=== PATIENT | female | born 1995 | race African-American/Black ===

== ENCOUNTER 2018-04-16 09:43 | Emergency (ER) | payer MEDICAID, SELFPAY ==
[2018-04-16 09:52] VITALS: BP 105/90; PULSE 63; RESP 18; TEMP 36.5; O2SAT 100
[2018-04-16 10:11] LABS: Bilirubin Negative (Negative); Blood Large (Negative); Clarity Clear; Glucose Negative (Negative); Ketones Negative (Negative); Leukocyte Esterase Negative (Negative); Nitrite Negative (Negative); Specific Gravity >= 1.030 (1.005-1.025); Urobilinogen 0.2 EU/dL (Up TO 0.2); pH 5.5 (5-8)
[2018-04-16 10:22] LABS: Bacteria Moderate HPF (Negative); C & S Indicated? No; Casts Negative LPF (Negative); Crystals Negative HPF (Negative); Epithelial Cells Few HPF (Negative); Mucus Negative (Negative); Other Cells Negative (Negative); RBC >50 (0-2); WBC Negative HPF (0-5)
--- NOTE | 2018-04-16 10:36 | W.ED.GENAD ---
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 Tylenol and/or Ibuprofen as needed for discomfort. You can take Ibuprofen again at 6:30 tonight. You make take 600mg of Ibuprofen and 1,000mg of Tylenol every six hours as needed for discomfort. Please follow up with OB-SPORTS COORDINATOR, number is listed below. Please call to schedule appointment. If you develop fevers/chills, change in urinary or bowel habits, increased pain or other new/worsening symptoms please seek care urgently once again. Sorry about our computure problems today. Your prescriptions have been called into the [facility] pharmacy in [place]. Referrals: Isabel Rossi [ [facility] STAFF PHYSICIAN] - 2 weeks (To discuss dysmenorrhea and control options. ) Medical Decision Making MDM Narrative Medical decision making narrative: Patient presents today with chief complaint of dysmenorrhea. Reports this has been a problem for years but that typically is well managed with OCP. However, secondary to her schedule she has not been able to get to [facility] and refill her prescription. She is not sexually active. UPT negative here today. Patient reports that this is the time she is due for her menses. Has not taken any OTC medication for her discomfort. Patient reports pain is typical for her. Indicates low, central abdomen as area of discomfort, that was reproducible on exam. Reviewed record, patient has been here previously for this. Had responded well to Toradol. Will given IM Toradol. Patient appears comfortable, resting in bed on her cell phone. No acute distress, patient is afebrile, vital signs are WNL. As pain is central, it occurs monthly with onset of menses and patient appears well on exam, I do not feel that imaging or labs are necessary at this time. Patient received Toradol IM. She reports that her pain is down from an 8 to a 4 after medication. Will refill her OCP. She prefers to f/u here with [facility], referral has been sent. Patient will call the department to schedule appointment. Encouraged hydration. Advised Tylenol and/or Motrin as needed for discomfort. Discussed new/worsening symptoms and when to seek care urgently once again. All of her questions and concerns were addressed, she is in agreement with this plan. Lab Data Lab Results 04/16/18 Range/Units 09:50 Urine Color Yellow (Yellow) Urine Clarity Clear Urine pH 5.5 (5-8) Ur Specific [place] >= 1.030 H (1.005-1.025) Urine Protein 30 H (Negative) mg/dL Urine Ketones Negative (Negative) mg/dL Urine Blood Large H (Negative) Urine Nitrite Negative (Negative) Urine Bilirubin Negative (Negative) Urine Urobilinogen 0.2 (Up TO 0.2) EU/dL Ur Leukocyte Esterase Negative (Negative) Urine RBC >50 H (0-2) Urine WBC Negative (0-5) HPF Ur Epithelial Cells Few (Negative) HPF Urine Crystals Negative (Negative) HPF Urine Bacteria Moderate (Negative) HPF Urine Casts Negative (Negative) LPF Urine Mucus Negative (Negative) Urine Other Negative (Negative) Ur Culture Indicated? No Urine Glucose Negative (Negative) mg/dL HPI - General Adult General Mode of arrival: ambulatory. Date/Time Provider Initiated Documentation: 04/16/18 10:26. Limitations to Documentation: no limitations. Information obtained by: patient. History of Present Illness described as moderate, Quality is described as aching, and is localized to the abdomen (low central abdomen). Patient reports radiation to back (low back). Patient started experiencing this hour(s) (at 0400 ) and it has been constant. No relieving factors improve symptom(s), (patient has not tried anything for her discomfort) No exacerbating factors reported . Patient notes no other symptoms.; denies chest pain, fever/chills, headaches, loss of appetite, nausea/vomiting, rash and shortness of breath. Patient did receive the following treatments prior to arrival, none HPI Narrative: Patient presents with chief complaint of menstrual cramps that began this morning. Related Data Previous Rx's Medication Instructions Recorded ibuprofen 600 mg PO TID #30 tablet 05/12/14 Allergies Allergy/AdvReac Type Severity Reaction Status Date / Time venom-honey bee Allergy Severe Anaphylaxsi Unverified 04/16/18 10:30 [bee venom (honey bee)] s General Stated Complaint: CAT AND DOG BATHER DUANE: 3 Review of Systems Constitutional Reports as per HPI, Denies body ache(s), Denies chills and Denies fever(s) Cardiovascular Denies chest pain Respiratory Denies cough Gastrointestinal Reports as per HPI, Reports abdominal pain, Denies change in bowel habits, Reports cramping, Denies nausea and Denies vomiting Genitourinary Reports system reviewed and no additional complaints, except as docu, Denies abnormal menses (Patient began her usual menstraul cycle this morning. Patient is typically on OCP but states she has not been able to get more [facility] this [facility]. States typical amount of bleeding. ), Denies urinary frequency, Denies difficulty voiding and Denies dyspareunia Musculoskeletal Reports as per HPI PFSH Family History Mother Migraine Personal history of malignant neoplasm Asthma Brother Asthma Other Diabetes Essential hypertension Heart disease Cerebrovascular accident Medical History Headache Social History Smoking/Tobacco Use Status: Never Female Reproductive History Menstrual control method: none Exam Const General: cooperative, healthy appearing, comfortable, no acute distress, well developed and well groomed Nutritional Appearance: average body habitus and well nourished Orientation: alert and awake Eyes General: appearance normal, both eyes and all related structures Resp Effort & Inspection: normal respiratory effort, able to speak in complete sentences and no respiratory distress Auscultation: clear to auscultation bilaterally and lung sounds not diminished Cardio Rate: regular rate Rhythm: regular rhythm Heart Sounds: S1 normal and S2 normal GI Inspection: normal to inspection, no abdominal wall ecchymosis, no edema, non-distended, no incisions and obesity Palpation: soft, no hepatosplenomegaly, not firm, no guarding and no hepatomegaly Auscultation: normal bowel sounds Back/Spine/Pelvis Back: no CVA tenderness Thoracic/Lumbar Spine: thoracic and lumbar spine normal to inspection (Patient indicated across lower back as area of discomfort but none was elicited with palpation) Skin General skin exam: no rashes or lesions noted Neuro General: alert, awake and gait normal Psych Appearance: grossly normal and well kempt Mental Status: mental status grossly normal Speech and Movement: speech and movement normal Mood: congruent mood Affect: normal affect Attitude: cooperative Thought Process: normal Course Vital Signs Temperature 36.5 C 04/16/18 09:52 Pulse 63 04/16/18 09:52 Respiratory Rate 18 04/16/18 09:52 Blood Pressure 105/90 04/16/18 09:52 Pulse Oximetry 100 04/16/18 09:52 Temperature 36.5 C 04/16/18 09:52 Pulse 63 04/16/18 09:52 Respiratory Rate 18 04/16/18 09:52 Blood Pressure 105/90 04/16/18 09:52 Pulse Oximetry 100 04/16/18 09:52 Lab/Test Results Lab/Test Results: Laboratory Tests 04/16/18 09:50 Urine Color Yellow Urine Clarity Clear Urine pH 5.5 Ur Specific [place] >= 1.030 H Urine Protein 30 H Urine Ketones Negative Urine Blood Large H Urine Nitrite Negative Urine Bilirubin Negative Urine Urobilinogen 0.2 Ur Leukocyte Esterase Negative Urine RBC >50 H Urine WBC Negative Ur Epithelial Cells Few Urine Crystals Negative Urine Bacteria Moderate Urine Casts Negative Urine Mucus Negative Urine Other Negative Ur Culture Indicated? No Urine Glucose Negative
[2018-04-16] MEDS: Ketorolac 60 MG/2 ML VIAL IM (10:40)
--- NOTE | 2018-04-16 10:42 | ED.GENADUL_ITS ---
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 Tylenol and/or Ibuprofen as needed for discomfort. You can take Ibuprofen again at 6:30 tonight. You make take 600mg of Ibuprofen and 1,000mg of Tylenol every six hours as needed for discomfort. Please follow up with OB-CLINICAL DIRECTOR, number is listed below. Please call to schedule appointment. If you develop fevers/chills, change in urinary or bowel habits, increased pain or other new/worsening symptoms please seek care urgently once again. Sorry about our computure problems today. Your prescriptions have been called into the [facility] pharmacy in [place]. Referrals: Isabel Rossi [ [facility] STAFF PHYSICIAN] - 2 weeks (To discuss dysmenorrhea and control options. ) Medical Decision Making MDM Narrative Medical decision making narrative: Patient presents today with chief complaint of dysmenorrhea. Reports this has been a problem for years but that typically is well managed with OCP. However, secondary to her schedule she has not been able to get to [facility] and [facility]ill her prescription. She is not sexually active. UPT negative here today. Patient reports that this is the time she is due for her menses. Has not taken any OTC medication for her discomfort. Patient reports pain is typical for her. Indicates low, central abdomen as area of discomfort, that was reproducible on exam. Reviewed record, patient has been here previously for this. Had responded well to Toradol. Will given IM Toradol. Patient appears comfortable, resting in bed on her cell phone. No acute distress, patient is afebrile, vital signs are WNL. As pain is central, it occurs monthly with onset of menses and patient appears well on exam, I do not feel that imaging or labs are necessary at this time. Patient received Toradol IM. She reports that her pain is down from an 8 to a 4 after medication. Will refill her OCP. She prefers to f/u here with TE[facility], referral has been sent. Patient will call the department to schedule appointment. Encouraged hydration. Advised Tylenol and/or Motrin as needed for discomfort. Discussed new/worsening symptoms and when to seek care urgently once again. All of her questions and concerns were addressed, she is in agreement with this plan. Lab Data Lab Results 04/16/18 Range/Units 09:50 Urine Color Yellow (Yellow) Urine Clarity Clear Urine pH 5.5 (5-8) Ur Specific [place] >= 1.030 H (1.005-1.025) Urine Protein 30 H (Negative) mg/dL Urine Ketones Negative (Negative) mg/dL Urine Blood Large H (Negative) Urine Nitrite Negative (Negative) Urine Bilirubin Negative (Negative) Urine Urobilinogen 0.2 (Up TO 0.2) EU/dL Ur Leukocyte Esterase Negative (Negative) Urine RBC >50 H (0-2) Urine WBC Negative (0-5) HPF Ur Epithelial Cells Few (Negative) HPF Urine Crystals Negative (Negative) HPF Urine Bacteria Moderate (Negative) HPF Urine Casts Negative (Negative) LPF Urine Mucus Negative (Negative) Urine Other Negative (Negative) Ur Culture Indicated? No Urine Glucose Negative (Negative) mg/dL HPI - General Adult General Mode of arrival: ambulatory . Date/Time Provider Initiated Documentation: 04/16/18 10:26 . Limitations to Documentation: no limitations . Information obtained by: patient . History of Present Illness described as moderate, Quality is described as aching, and is localized to the abdomen (low central abdomen). Patient reports radiation to back (low back ). Patient started experiencing this hour(s) (at 0400 ) and it has been constant. No relieving factors improve symptom(s), (patient has not tried anything for her discomfort) No exacerbating factors reported . Patient notes no other symptoms.; denies chest pain, fever/chills, headaches, loss of appetite, nausea/vomiting, rash and shortness of breath. Patient did receive the following treatments prior to arrival, none HPI Narrative: Patient presents with chief complaint of menstrual cramps that began this morning. 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 Patient is typically on OCP but states she has not been able to get more from [facility] this [facility]. States typical amount of bleeding. ), Denies urinary frequency, Denies difficulty voiding and Denies dyspareunia Musculoskeletal Reports as per HPI PFSH Family History Mother Migraine Personal history of malignant neoplasm Asthma Brother Asthma Other Diabetes Essential hypertension Heart disease Cerebrovascular accident Medical History Headache Social History Smoking/Tobacco Use Status: Never Female Reproductive History Menstrual control method: none Exam Const General: cooperative, healthy appearing, comfortable, no acute distress, well developed and well groomed Nutritional Appearance: average body habitus and well nourished Orientation: alert and awake Eyes General: appearance normal, both eyes and all related structures Resp Effort & Inspection: normal respiratory effort, able to speak in complete sentences and no respiratory distress Auscultation: clear to auscultation bilaterally and lung sounds not diminished Cardio Rate: regular rate Rhythm: regular rhythm Heart Sounds: S1 normal and S2 normal GI Inspection: normal to inspection, no abdominal wall ecchymosis, no edema, non- distended, no incisions and obesity Palpation: soft, no hepatosplenomegaly, not firm, no guarding and no hepatomegaly Auscultation: normal bowel sounds Back/Spine/Pelvis Back: no CVA tenderness Thoracic/Lumbar Spine: thoracic and lumbar spine normal to inspection (Patient indicated across lower back as area of discomfort but none was elicited with palpation) Skin General skin exam: no rashes or lesions noted Neuro General: alert, awake and gait normal Psych Appearance: grossly normal and well kempt Mental Status: mental status grossly normal Speech and Movement: speech and movement normal Mood: congruent mood Affect: normal affect Attitude: cooperative Thought Process: normal Course Vital Signs Temperature 36.5 C 04/16/18 09:52 Pulse 63 04/16/18 09:52 Respiratory Rate 18 04/16/18 09:52 Blood Pressure 105/90 04/16/18 09:52 Pulse Oximetry 100 04/16/18 09:52 Temperature 36.5 C 04/16/18 09:52 Pulse 63 04/16/18 09:52 Respiratory Rate 18 04/16/18 09:52 Blood Pressure 105/90 04/16/18 09:52 Pulse Oximetry 100 04/16/18 09:52 Lab/Test Results Lab/Test Results: Laboratory Tests 04/16/18 09:50 Urine Color Yellow Urine Clarity Clear Urine pH 5.5 Ur Specific [place] >= 1.030 H Urine Protein 30 H Urine Ketones Negative Urine Blood Large H Urine Nitrite Negative Urine Bilirubin Negative Urine Urobilinogen 0.2 Ur Leukocyte Esterase Negative Urine RBC >50 H Urine WBC Negative Ur Epithelial Cells Few Urine Crystals Negative Urine Bacteria Moderate Urine Casts Negative Urine Mucus Negative Urine Other Negative Ur Culture Indicated? No Urine Glucose Negative
[2018-04-16 11:30] VITALS: BP 132/76; PULSE 68; RESP 16; TEMP 36.5; O2SAT 98
== END 2018-04-16 11:30 | disposition home or self-care (01) ==
PROVIDERS: Emergency Medicine; Emergency Provider Physician Assistant; PCP Registered Nurse
DX: N94.6 Dysmenorrhea, unspecified (principal)
CPT/HCPCS: 81025; 96372; 99284; 81003; 81015; J1885

== ENCOUNTER 2018-05-13 18:25 | Outpatient (REF) | payer MEDICAID, SELFPAY ==
[2018-05-15 14:54] LABS: Chlamydia Result Negative; GC Result Negative; Specimen Description URINE
== END 2018-05-13 18:45 ==
LOC: NCHCN 18:25
PROVIDERS: PCP Nurse Practitioner Family; Visit Provider Nurse Practitioner Family
DX: Z11.3 Encounter for screening for infections with a predominantly sexual mode of transmission (principal)
CPT/HCPCS: 87491; 87591

== ENCOUNTER 2018-05-20 00:23 | Outpatient (CLI) | payer MEDICAID, SELFPAY ==
--- NOTE | 2018-05-20 11:16 | DI.US_ITS ---
SYMPTOM/DIAGNOSIS: LEG MASS, R22.40, LUMP RT MEDIAL ANKLE, SOFT TISSUE ULTRASOUND OF MEDIAL LOWER LEG: Targeted sonographic evaluation of the right lower leg medially was performed. No cystic or solid masses are seen sonographically. IMPRESSION: Negative ultrasound of the right lower leg. No sonographic correlation to the palpable abnormality is identified.
== END 2018-05-20 00:43 ==
PROVIDERS: PCP Nurse Practitioner Family; Visit Provider Nurse Practitioner Family
DX: R22.41 Localized swelling, mass and lump, right lower limb (principal)
CPT/HCPCS: 76881

== ENCOUNTER 2018-11-13 02:13 | Emergency (ER) | payer MEDICAID, SELFPAY ==
[2018-11-13 02:22] VITALS: BP 123/65; PULSE 115; RESP 16; TEMP 36.6; O2SAT 100
--- NOTE | 2018-11-13 02:26 | ED.GENADUL_ITS ---
Discharge Plan Disposition Patient Disposition: HOME Condition: Improving Discharge Details Chief Complaint: Sorethroat Clinical Impression: Acute pharyngitis Primary Care Provider: Samira Mast ED Provider: Tez Reyes Home Meds and New Rx's Prescriptions: Continued norgestimate-ethinyl estradiol [Ortho-Cyclen (28)] 1 EACH tablet 1 tab-cap PO DAILY Qty: 3 RF: 3 epinephrine [EpiPen 2-Yasmani] 0.3 MG/0.3 ML auto-injector 0.3 mg IM ONCE Qty: 1 RF: 0 ibuprofen 600 MG tablet 600 mg PO TID Qty: 30 RF: 0 Discharge Instructions Instructions: Pharyngitis (ED) Additional Instructions: The dexamethasone will continue to work over approximately 36 hours and improve your discomfort. Tylenol and ibuprofen as needed for pain. May continue salt water gargles. May use [id number] Cepacol lozenges. Return for worsening or any acute concerns. Medical Decision Making 23-year-old female with sore throat over a day and a half time. She has erythematous tonsillar pillar but no severe exudates and no asymmetrical swelling. Rapid strep test is negative. Patient will be given a single dose of dexamethasone for its anti-inflammatory properties, she is given Tylenol. She is stable for outpatient management of pharyngitis. HPI General Mode of arrival: ambulatory . Date/Time Provider Initiated Documentation: 11/13/18 02:20 . Limitations to Documentation: no limitations . Information obtained by: patient . History of Present Illness 23 year old F presents to the emergency department with the chief complaint of Sore throat times 1.5 days., described as moderate, Quality is described as dull and constant, and is localized to the mouth. Patient reports no radiation. Patient started experiencing this day(s) and it has been constant. No relieving factors improve symptom(s), No exacerbating factors reported . Fercho baez notes no other symptoms. and other. Related Data Home Medications Medication Instructions Recorded Confirmed norgestimate-ethinyl estradiol 1 tab-cap PO DAILY #3 pack 12/22/13 [Ortho-Cyclen (28)] epinephrine [EpiPen 2-Yasmani] 0.3 mg IM ONCE #1 pack 04/24/14 ibuprofen 600 mg PO TID #30 tablet 05/12/14 Previous Rx's Medication Instructions Recorded ibuprofen 600 mg PO TID #30 tablet 05/12/14 Allergies Allergy/AdvReac Type Severity Reaction Status Date / Time venom-honey bee Allergy Severe Anaphylaxsi Unverified 11/13/18 02:22 [bee venom (honey bee)] s General Stated Complaint: Sorethroat DUANE: 4 Review of Systems Review of Systems No muffled voice, tolerating secretions. 6 systems reviewed and otherwise negative [facility] Medical History Headache Family History Mother Migraine Personal history of malignant neoplasm Asthma Brother Asthma Other Diabetes Essential hypertension Heart disease Stroke Social History Smoking/Tobacco Use Status: Never Drug use: Never Do you feel safe at home: Yes Do you feel safe in your relationship?: Yes Female Reproductive History Menstrual control method: none Exam Narrative Exam Narrative: GEN: awake, alert, oriented 3. Pleasant, well groomed, interactive. HEAD: Normocephalic, atraumatic ENT: Mucous membranes moist, oropharynx w erythematous tonsillar pillars, no uvular shift external ear exam unremarkable EYES: PERRL, EOMI NECK: Full ROM, no VIMAL, no menigismus CHEST/RESP: Nontender, clear to auscultation bilateral, no wheeze/rhonchi/rales CARDIOVASCULAR: RRR, no murmur, rub rocio. 2+ Rad pulse bilateral ABDOMEN: Soft, nontender, no mass. +Bowel sounds EXT: Full ROM, no edema, no rash Neuro: Grossly normal neurologic exam, conversant, interactive. Psych: Speech fluent, thoughts congruent, affect normal Course Vital Signs Temperature 36.6 C 11/13/18 02:22 Pulse 115 H 11/13/18 02:22 Respiratory Rate 16 11/13/18 02:22 Blood Pressure 123/65 11/13/18 02:22 Pulse Oximetry 100 11/13/18 02:22 Temperature 36.6 C 11/13/18 02:22 Temperature Source Temporal Artery Scan 11/13/18 02:22 Pulse 115 H 11/13/18 02:22 Respiratory Rate 16 11/13/18 02:22 Respiratory Effort 11/13/18 02:22 Blood Pressure 123/65 11/13/18 02:22 Blood Pressure Position Sitting 11/13/18 02:22 Pulse Oximetry 100 11/13/18 02:22 Oxygen Delivery Method Room Air 11/13/18 02:22 Oxygen Flow Rate 0 11/13/18 02:22
[2018-11-13] MEDS: Acetaminophen 500 MG TAB 1000 MG PO (02:36)
[2018-11-13] MEDS: Dexamethasone 4 MG TAB 8 MG PO (02:36)
== END 2018-11-13 02:48 | disposition home or self-care (01) ==
LOC: ER 02:59
PROVIDERS: Emergency Provider Emergency Medicine; PCP Nurse Practitioner Family
DX: J02.9 Acute pharyngitis, unspecified (principal)
CPT/HCPCS: 87880; 99283; 87081; J8540

== ENCOUNTER 2018-11-15 00:44 | Emergency (ER) | payer MEDICAID, SELFPAY ==
--- NOTE | 2018-11-15 00:45 | W.ED.GENAD ---
Discharge Plan Disposition Patient Disposition: HOME Condition: Stable Discharge Details Chief Complaint: Sorethroat Clinical Impression: Sore throat Primary Care Provider: Samira Mast ED Provider: Dave Avina Home Meds and New Rx's Prescriptions: No Action norgestimate-ethinyl estradiol [Ortho-Cyclen (28)] 1 EACH tablet 1 tab-cap PO DAILY Qty: 3 RF: 3 epinephrine [EpiPen 2-Yasmani] 0.3 MG/0.3 ML auto-injector 0.3 mg IM ONCE Qty: 1 RF: 0 ibuprofen 600 MG tablet 600 mg PO TID Qty: 30 RF: 0 Discharge Instructions Instructions: Pharyngitis (ED) Additional Instructions: You can take 1000mg tylenol and 600mg ibuprofen every 6 hours for pain as needed if pain continues next week see your primary care provider if you are unable to swallow liquids or have difficulty breathing return to the emergency department HPI General Mode of arrival: ambulatory. Date/Time Provider Initiated Documentation: 11/15/18 00:45. Limitations to Documentation: no limitations. Information obtained by: patient. History of Present Illness 23 year old F presents to the emergency department with the chief complaint of sore throat, Related Data Home Medications Medication Instructions Recorded Confirmed norgestimate-ethinyl estradiol 1 tab-cap PO DAILY #3 pack 12/22/13 11/15/18 [Ortho-Cyclen (28)] epinephrine [EpiPen 2-Yasmani] 0.3 mg IM ONCE #1 pack 04/24/14 11/15/18 ibuprofen 600 mg PO TID #30 tablet 05/12/14 11/15/18 Previous Rx's Medication Instructions Recorded ibuprofen 600 mg PO TID #30 tablet 05/12/14 Allergies Allergy/AdvReac Type Severity Reaction Status Date / Time venom-honey bee Allergy Severe Anaphylaxsi Unverified 11/15/18 00:54 [bee venom (honey bee)] s General DUANE: 4 PFSH Social History Smoking/Tobacco Use Status: Never Drug use: Never Do you feel safe at home: Yes Do you feel safe in your relationship?: Yes Female Reproductive History Menstrual control method: none
[2018-11-15 00:50] VITALS: BP 121/88; PULSE 89; RESP 16; TEMP 36.7; O2SAT 100
--- NOTE | 2018-11-15 01:03 | ED.GENADUL_ITS ---
Discharge Plan Disposition Patient Disposition: HOME Condition: Stable Discharge Details Chief Complaint: Sorethroat Clinical Impression: Sore throat Primary Care Provider: Samira Mast ED Provider: Dave Avina Home Meds and New Rx's Prescriptions: No Action norgestimate-ethinyl estradiol [Ortho-Cyclen (28)] 1 EACH tablet 1 tab-cap PO DAILY Qty: 3 RF: 3 epinephrine [EpiPen 2-Yasmani] 0.3 MG/0.3 ML auto-injector 0.3 mg IM ONCE Qty: 1 RF: 0 ibuprofen 600 MG tablet 600 mg PO TID Qty: 30 RF: 0 Discharge Instructions Instructions: Pharyngitis (ED) Additional Instructions: You can take 1000mg tylenol and 600mg ibuprofen every 6 hours for pain as needed if pain continues next week see your primary care provider if you are unable to swallow liquids or have difficulty breathing return to the emergency department HPI General Mode of arrival: ambulatory . Date/Time Provider Initiated Documentation: 11/15/18 00:45 . Limitations to Documentation: no limitations . Information obtained by: patient . History of Present Illness 23 year old F presents to the emergency department with the chief complaint of sore throat, Related Data Home Medications Medication Instructions Recorded Confirmed norgestimate-ethinyl estradiol 1 tab-cap PO DAILY #3 pack 12/22/13 11/15/18 [Ortho-Cyclen (28)] epinephrine [EpiPen 2-Yasmani] 0.3 mg IM ONCE #1 pack 04/24/14 11/15/18 ibuprofen 600 mg PO TID #30 tablet 05/12/14 11/15/18 Previous Rx's Medication Instructions Recorded ibuprofen 600 mg PO TID #30 tablet 05/12/14 Allergies Allergy/AdvReac Type Severity Reaction Status Date / Time venom-honey bee Allergy Severe Anaphylaxsi Unverified 11/15/18 00:54 [bee venom (honey bee)] s General DUANE: 4 PFSH Social History Smoking/Tobacco Use Status: Never Drug use: Never Do you feel safe at home: Yes Do you feel safe in your relationship?: Yes Female Reproductive History Menstrual control method: none
[2018-11-15] MEDS: Ibuprofen 600 MG TAB PO (01:11)
[2018-11-15] MEDS: Acetaminophen 500 MG TAB 1000 MG PO (01:11)
[2018-11-15] MEDS: Acetaminophen 500 MG TAB (01:12)
--- NOTE | 2018-11-15 01:12 | NUR.NOTE ---
patient dropped on apap on the floor and new 500 mg apap admin per MD order Nursing Note:
== END 2018-11-15 01:14 | disposition home or self-care (01) ==
PROVIDERS: Emergency Provider Emergency Medicine; PCP Nurse Practitioner Family
DX: J02.9 Acute pharyngitis, unspecified (principal)
CPT/HCPCS: 87880; 99283

== ENCOUNTER 2019-03-25 00:25 | Emergency (ER) | payer MEDICAID, SELFPAY ==
[2019-03-25 00:36] VITALS: BP 119/54; PULSE 72; RESP 20; TEMP 36.4; O2SAT 97
--- NOTE | 2019-03-25 00:41 | ED.GENADUL_ITS ---
Discharge Plan Disposition Patient Disposition: HOME Condition: Improving Discharge Details Chief Complaint: Abd Prob Clinical Impression: Menstrual cramp Primary Care Provider: Samira Mast ED Provider: Tez Reyes Home Meds and New Rx's Prescriptions: Continued norgestimate-ethinyl estradiol [Ortho-Cyclen (28)] 1 EACH tablet 1 tab-cap PO DAILY Qty: 3 RF: 3 epinephrine [EpiPen 2-Yasmani] 0.3 MG/0.3 ML auto-injector 0.3 mg IM ONCE Qty: 1 RF: 0 ibuprofen 600 MG tablet 600 mg PO TID Qty: 30 RF: 0 Discharge Instructions Additional Instructions: Home to rest this evening. Continue small, regular sips of fluids to maintain hydration. May use Tylenol and/or ibuprofen as needed for pain. Return if you develop a fever, persistent vomiting, or any other acute concern Medical Decision Making 23-year-old female presents with abdominal cramps during her menses with associated nausea, vomiting, loose stool. She is afebrile and well-appearing but with mild diffuse abdominal tenderness on exam. IV placed, screening labs obtained, patient given fluid bolus, antiemetic, ketorolac. Patient does appear to be somewhat dehydrated but her labs are otherwise reassuring. She improved with fluids and medications, requested discharge to home. Consistent with menstrual cramps. She stable for discharge at this time. Lab Data Lab results reviewed: Yes I reviewed the patient's lab results. Laboratory Results - last 24 hr 03/25/19 03/25/19 03/25/19 01:05 01:05 01:05 WBC 11.43 H RBC 4.38 Hgb 12.5 Hct 38.6 MCV 88.1 MCH 28.5 MCHC 32.4 RDW 13.6 Plt Count 304 MPV 10.8 Immature Gran % 0.3 Neutrophils % 73.3 Lymphocytes % 19.9 Monocytes % 6.1 Eosinophils % 0.1 Basophils % 0.3 Absolute Neutrophils 8.38 H Absolute Lymphocytes 2.27 Absolute Monocytes 0.70 Absolute Eosinophils 0.01 Absolute Basophils 0.03 Sodium 139 Potassium 3.7 Chloride 104 Carbon Dioxide 21.8 Anion Gap 13.2 H BUN 13 Creatinine 0.83 Estimated GFR/1.73 m2 >= 60.00 Glucose 110 H Calcium 10.0 Total Bilirubin 0.4 AST 14 L ALT 19 Alkaline Phosphatase 91 Total Protein 8.6 H Albumin 3.9 Lipase 54 L Urine Color Yellow Urine Clarity Cloudy Urine pH 5.5 Ur Specific [place] >= 1.030 H Urine Protein 30 H Urine Ketones Negative Urine Blood Large H Urine Nitrite Negative Urine Bilirubin Small H Urine Urobilinogen 0.2 Ur Leukocyte Esterase Negative Urine RBC 3-5 H Urine WBC Negative Ur Epithelial Cells Negative Urine Crystals Many amorphous Urine Bacteria Rare Urine Casts Negative Urine Mucus Negative Ur Culture Indicated? No Urine Glucose Negative HPI General Mode of arrival: ambulatory . Date/Time Provider Initiated Documentation: 03/25/19 00:36 . Limitations to Documentation: no limitations . Information obtained by: patient . History of Present Illness 23 year old F presents to the emergency department with the chief complaint of Abdominal cramps, described as moderate, Quality is described as dull, and is localized to the abdomen. Patient reports no radiation. Patient started experiencing this hour(s) and it has been constant. No relieving factors improve symptom(s), No exacerbating factors reported . Patient notes nausea/vomiting and other (Watery stool, currently on menses with normal flow). Patient did receive the following treatments prior to arrival, none Related Data Home Medications Medication Instructions Recorded Confirmed norgestimate-ethinyl estradiol 1 tab-cap PO DAILY #3 pack 12/22/13 11/15/18 [Ortho-Cyclen (28)] epinephrine [EpiPen 2-Yasmani] 0.3 mg IM ONCE #1 pack 04/24/14 11/15/18 ibuprofen 600 mg PO TID #30 tablet 05/12/14 11/15/18 Previous Rx's Medication Instructions Recorded ibuprofen 600 mg PO TID #30 tablet 05/12/14 Allergies Allergy/AdvReac Type Severity Reaction Status Date / Time venom-honey bee Allergy Severe Anaphylaxsi Unverified 11/15/18 00:54 [bee venom (honey bee)] s General DUANE: 4 Review of Systems Review of Systems No fever. No travel. No known sick contacts. 6 systems reviewed and otherwise negative PFSH Social History Smoking/Tobacco Use Status: Never Alcohol Intake: never Drug use: Never Do you feel safe at home: Yes Do you feel safe in your relationship?: Yes Female Reproductive History Menstrual control method: none Exam Narrative Exam Narrative: GEN: awake, alert, oriented 3. Pleasant, well groomed, interactive. HEAD: Normocephalic, atraumatic ENT: Mucous membranes moist, oropharynx unremarkable, External ear exam unremarkable EYES: PERRL, EOMI NECK: Full ROM, no VIMAL, no menigismus CHEST/RESP: Nontender, clear to auscultation bilateral, no wheeze/rhonchi/rales CARDIOVASCULAR: RRR, no murmur, rub rocio. 2+ Rad pulse bilateral ABDOMEN: Soft, mild diffuse tenderness without Riebe wound, no mass. +Bowel sounds EXT: Full ROM, no edema, no rash Neuro: Grossly normal neurologic exam, conversant, interactive. Psych: Speech fluent, thoughts congruent, affect normal
[2019-03-25] MEDS: Ondansetron 4 MG/2 ML VIAL IVP ×2 (01:15→02:10)
[2019-03-25] MEDS: Normal Saline 1,000 ML 1000 ML IV (01:15)
[2019-03-25] MEDS: Ketorolac 30 MG/ML VIAL IVP (01:15)
[2019-03-25 01:26] LABS: Abs Immature Grans 0.03 k/cumm (0.0-0.09); Absolute Basophil Count 0.03 k/cumm (0.0-0.2); Absolute Eosinophil Count 0.01 k/cumm (0.0-0.7); Absolute Lymphocyte Count 2.27 k/cumm (1.2-3.4); Basophils % 0.3; Eosinophils % 0.1; HCT 38.6 % (36.0-46.0); HGB 12.5 g/dL (12.0-15.5); Immature Grans % 0.3; Lymphocytes % 19.9; Mean Corp. HGB Concentration 32.4 g/dL (32.0-36.0); Mean Corpuscular Hemoglobin 28.5 pg (27.0-33.0); Mean Corpuscular Volume 88.1 fL (80-95); Mean Platelet Volume 10.8 fL (8.0-11.0); Monocytes % 6.1; Neutrophils % 73.3; Platelet Count 304 x1000/uL (130-400); RBC 4.38 m/cumm (4.00-5.20); RBC Distribution Width 13.6 % (11.7-14.6); White Blood Cell Count 11.43 k/cumm (4.4-10.8)
[2019-03-25 01:27] LABS: Absolute Neutrophil Count 8.38 k/cumm (1.2-6.7)
[2019-03-25 01:31] LABS: Bilirubin Small (Negative); Blood Large (Negative); Clarity Cloudy (Clear); Glucose Negative (Negative); Ketones Negative (Negative); Leukocyte Esterase Negative (Negative); Nitrite Negative (Negative); Specific Gravity >= 1.030 (1.005-1.025); Urobilinogen 0.2 EU/dL (Up TO 0.2); pH 5.5 (5-8)
[2019-03-25 01:46] LABS: Bacteria Rare HPF (Negative); C & S Indicated? No; Casts Negative LPF (Negative); Crystals Many Amorphous HPF (Negative); Epithelial Cells Negative HPF (Negative); Mucus Negative (Negative); WBC Negative HPF (0-5)
[2019-03-25 01:59] LABS: ALT 19 U/L (12-78); AST 14 U/L (15-37); Albumin 3.9 g/dL (3.4-5.0); Alkaline Phosphatase 91 U/L (46-116); Anion Gap 13.2 mmol/L (3-11); BUN 13 mg/dL (7-18); Bilirubin, Total 0.4 mg/dL (0.2-1.0); CO2 21.8 mmol/L (21.0-32.0); CREATININE 0.83 mg/dL (0.55-1.02); Chloride 104 mmol/L (98-107); Glucose 110 mg/dL (70-100); Lipase 54 U/L (73-393); Potassium 3.7 mmol/L (3.5-5.1); Sodium 139 mmol/L (136-145); Total Protein 8.6 g/dL (6.4-8.2)
[2019-03-25 02:32] VITALS: BP 114/54; PULSE 82; RESP 16; O2SAT 100
== END 2019-03-25 02:42 | disposition home or self-care (01) ==
PROVIDERS: Emergency Provider Emergency Medicine; PCP Nurse Practitioner Family
DX: N94.6 Dysmenorrhea, unspecified (principal); R11.2 Nausea with vomiting, unspecified; E86.0 Dehydration
CPT/HCPCS: 36415; 80053; 83690; 96361; 96374; 96375; 96376; 99284; 81003; 81015; 85025; 99283; J1885; J2405

== ENCOUNTER 2019-04-17 19:19 | Emergency (ER) | payer MEDICAID, SELFPAY ==
[2019-04-17 19:23] VITALS: BP 139/60; PULSE 83; RESP 18; TEMP 36.5; O2SAT 99
--- NOTE | 2019-04-17 19:47 | ED.GENADUL_ITS ---
Discharge Plan Disposition Patient Disposition: HOME Condition: Stable Discharge Details Chief Complaint: Orthopedic Clinical Impression: Plantar fasciitis, right Primary Care Provider: Samira Mast ED Provider: Lupillo Garcia Home Meds and New Rx's Prescriptions: No Action epinephrine [EpiPen 2-Yasmani] 0.3 MG/0.3 ML auto-injector 0.3 mg IM ONCE Qty: 1 RF: 0 ibuprofen 600 MG tablet 600 mg PO TID Qty: 30 RF: 0 Discharge Instructions Instructions: Plantar Fasciitis Exercises (GEN), Plantar Fasciitis (ED), RICE Therapy (ED) Additional Instructions: Please rest your feet over the next 3 days, purchase shoe inserts or more supportive shoes and preform recommended stretches. if not improving follow up with your primary care provider or specialist as needed for recheck. Stand Alone Forms: Work Release Referrals: Samira Mast [Primary Care Provider] - (as needed for recheck or if not improving) Adam Haskins DPM [[facility] STAFF PHYSICIAN] - Medical Decision Making Patient presenting to the emergency department for chief complaint of right foot pain. Patient reports this is been going on for the past month and is worse in the morning especially when she gets out of bed. Patient does report wearing sandals and does have some flat-footed shoes. Physical exam is consistent with plantar fasciitis. No signs of trauma, no crepitus, no bony prominence tenderness or feel that radiological imaging needs to be performed. Informed patient on stretching along with shoe supports or new shoe recommendation. Patient informed to rest over the next 3 days along with ice and use ibuprofen. After discussion of diagnosis and plan of care patient has no further needs, questions, or concerns and states clear understanding to return to the emergency department for any worsening symptoms. HPI General Mode of arrival: ambulatory . Date/Time Provider Initiated Documentation: 04/17/19 19:28 . Limitations to Documentation: no limitations . Information obtained by: patient and RN notes reviewed . History of Present Illness 23 year old F presents to the emergency department with the chief complaint of right foot pain, described as mild, with intensity rated at 3. Quality is described as aching, and is localized to the right and lower extremity. Related Data Home Medications Medication Instructions Recorded Confirmed epinephrine [EpiPen 2-Yasmani] 0.3 mg IM ONCE #1 pack 04/24/14 04/17/19 ibuprofen 600 mg PO TID #30 tablet 05/12/14 04/17/19 Previous Rx's Medication Instructions Recorded ibuprofen 600 mg PO TID #30 tablet 05/12/14 Allergies Allergy/AdvReac Type Severity Reaction Status Date / Time venom-honey bee Allergy Severe Anaphylaxsi Unverified 11/15/18 00:54 [bee venom (honey bee)] s General Stated Complaint: Orthopedic DUANE: 4 Review of Systems Musculoskeletal Reports as per HPI, Denies deformity, Denies limited range of motion, Denies numbness and Denies tingling Integumentary/Breasts Denies erythema and Denies rash Neurologic Denies numbness and Denies tingling PFSH Medical History Headache no visual changes, no N/V Family History Mother Migraine Personal history of malignant neoplasm breast Asthma Brother Asthma Other Diabetes MGM Essential hypertension MGM Heart disease MGM Stroke MGM Social History Smoking/Tobacco Use Status: Never Alcohol Intake: never Drug use: Never Do you feel safe at home: Yes Do you feel safe in your relationship?: Yes Female Reproductive History Menstrual control method: none Exam Const General: cooperative and no acute distress Orientation: alert, awake and oriented x3 Resp Effort & Inspection: normal respiratory effort and able to speak in complete sentences Cardio Rate: regular rate Rhythm: regular rhythm Extrem General: normal exam except as noted Right lower extremity: ankle Details: normal to inspection, no edema and normal ROM; no tenderness and foot Details: normal capillary refill, tenderness Location: of the plantar foot Location: proximally and other (Midfoot) and of the calcaneus Details: with squeeze, toes with normal ROM, no edema and vascular exam Details: dorsalis pedis pulse present and posterior tibial pulse present; no unusual warmth, no ecchymosis and no puncture wound Course Vital Signs Temperature 36.5 C 04/17/19 19:23 Pulse 83 04/17/19 19:23 Respiratory Rate 18 04/17/19 19:23 Blood Pressure 139/60 04/17/19 19:23 Pulse Oximetry 99 04/17/19 19:23 Temperature 36.5 C 04/17/19 19:23 Pulse 83 04/17/19 19:23 Respiratory Rate 18 04/17/19 19:23 Respiratory Effort Non-Labored 04/17/19 19:30 Blood Pressure 139/60 04/17/19 19:23 Pulse Oximetry 99 04/17/19 19:23 Pain Level 4 04/17/19 19:23 Comment 04/17/19 19:23
[2019-04-17 20:13] VITALS: BP 139/60; PULSE 83; RESP 18; O2SAT 99
== END 2019-04-17 20:15 | disposition home or self-care (01) ==
PROVIDERS: Emergency Provider Nurse Practitioner Family; PCP Nurse Practitioner Family
DX: M72.2 Plantar fascial fibromatosis (principal)
CPT/HCPCS: 99282

== ENCOUNTER 2019-09-17 13:31 | Emergency (ER) | payer MEDICAID, SELFPAY ==
[2019-09-17 13:55] VITALS: BP 130/83; PULSE 85; RESP 18; TEMP 36.6; O2SAT 99
[2019-09-17 14:26] LABS: Bilirubin Negative (Negative); Blood Large (Negative); Clarity Cloudy (Clear); Glucose Negative (Negative); Ketones Negative (Negative); Leukocyte Esterase Negative (Negative); Nitrite Negative (Negative); Specific Gravity >= 1.030 (1.005-1.025); Urobilinogen 0.2 EU/dL (Up TO 0.2); pH 5.5 (5-8)
[2019-09-17] MEDS: Acetaminophen 500 MG TAB 1000 MG PO (14:45)
[2019-09-17] MEDS: Ketorolac 15 MG/ML VIAL 30 MG IM (14:45)
[2019-09-17 14:53] LABS: Bacteria Rare HPF (Negative); Crystals Negative HPF (Negative); Epithelial Cells Few HPF (Negative); Mucus Negative (Negative); Other Cells Negative (Negative); RBC >50 HPF (0-2); WBC 0-2 HPF (0-5)
[2019-09-17 14:54] LABS: C & S Indicated? No; Casts Negative LPF (Negative)
--- NOTE | 2019-09-18 14:39 | NUR.NOTE ---
Referral faxed to [facility].Nursing Note:
--- NOTE | 2019-09-19 00:58 | ED.GENADUL_ITS ---
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 Ibuprofen or Tylenol for soreness if needed. Rest activities as tolerated. Consider follow-up with the [facility] or with [facility] as discussed. Return for any worsening, concerns or alarming symptoms sooner if needed Referrals: [facility] [Provider Group] Discharge Data Discharge Date/Time-TO BE ENTERED AT DEPARTURE: 09/17/19 15:41 Medical Decision Making This is a 24-year-old patient presenting to the emergency room for management of her menstrual cramping. Patient reports she has been evaluated in the emergency room for cramping in the past and typically will receive medication to assist with her management of discomfort. Patient reports very uncomfortable cramping which is difficult to tolerate. Patient reports onset of menstrual cycle last night which was very light, today a typical pattern of bleeding persists. Patient is complaining of cramping in her lower abdomen and back which is difficult to tolerate. Patient denies any systemic symptoms or ill feeling. Patient requesting medication management. Patient has no other apparent concerns at this time. Patient's testing is negative. Patient provided Toradol as well as Tylenol for management of her discomfort I did discuss with the patient the importance of following up with [facility] or the [facility] as they would be able to help provide the possibility of control to manage her cramps are more tolerable way. We did discuss the use of Motrin Tylenol [id number]. Patient does feel somewhat improved but not entirely relieved of pain. Patient is requesting discharge home at this time. The patient was stable and requested discharge. Prior to discharge, my usual and customary return precautions were reviewed with the patient - this included follow-up instructions and reasons to return to the Emergency Department if conditions worsens, does not improve as expected, or other new concerns arise. HPI General Date/Time Provider Initiated Documentation: 09/17/19 14:06 . HPI Narrative: Is a 24-year-old patient presenting to the emergency room for complaints of menstrual cramping. Patient reports that she typically gets very painful cramps. Patient reports she has not seen a AUTOTRANSFUSIONIST specialist. Patient reports this is typical of her presentation. Patient reports she occasionally will come to the emergency room be medicated and go home. Patient reports onset of menstrual cycle yesterday with a very light vaginal bleeding last evening. Patient reports a typical vaginal bleeding today using approximately 2-3 pads a day. Patient reports lower abdominal and lower back cramping which she has experienced in the past. Patient denies significant dizziness, weakness or fatigue. Patient denies nausea, vomiting or fevers. No upper respiratory symptoms. Patient denies any injury or trauma to her abdomen. Patient has no other concerns or complaints. Patient is not concerned with the possibility of . Patient seeking medication management of her cramps. Patient has taken no medications prior to arrival Related Data Home Medications Medication Instructions Recorded Confirmed epinephrine [EpiPen 2-Yasmani] 0.3 mg IM ONCE #1 pack 04/24/14 09/17/19 ibuprofen 600 mg PO TID #30 tablet 05/12/14 09/17/19 Previous Rx's Medication Instructions Recorded ibuprofen 600 mg PO TID #30 tablet 05/12/14 Allergies Allergy/AdvReac Type Severity Reaction Status Date / Time venom-honey bee Allergy Severe Anaphylaxsi Unverified 09/17/19 14:53 [bee venom (honey bee)] s General Stated Complaint: AUTOTRANSFUSIONIST DUANE: 4 Review of Systems All systems reviewed & are unremarkable except as noted in HPI and below Constitutional Constitutional: Denies chills, Denies fatigue, Denies fever(s), Denies headache(s) and Denies malaise ENT Ears, Nose, Mouth, and Throat: Denies headache(s) Gastrointestinal Gastrointestinal: Reports cramping, Denies diarrhea, Denies nausea and Denies vomiting Genitourinary Genitourinary: Denies hematuria, Denies urinary frequency, Denies dysuria, Denies flank pain, Denies urinary urgency and Denies vaginal dryness Neurologic Neurologic: Denies headache(s) Endocrine Endocrine: Denies fatigue [facility] Medical History Headache no visual changes, no N/V Social History Smoking/Tobacco Use Status: Never Alcohol Intake: never Drug use: Never Do you feel safe at home: Yes Do you feel safe in your relationship?: Yes Female Reproductive History Menstrual control method: none Exam Narrative Exam Narrative: CONST: Healthy appearing patient, in no acute distress. Well hydrated. Alert and oriented. NECK: Normal visual inspection. FROM. Trachea midline. No Midline tenderness. CHEST: Normal insepection of the chest. RESP: Normal respiratory effort. Speaking full sentences. No cough. No audible wheezing. No retractions. CARDIO: No JVD. No murmur, regular rate and rhythm GI: Bowel sounds present in all 4 quadrants, abdomen is soft, mild suprapubic discomfort. No peritoneal signs, rebound or guarding Back: No CVA tenderness SKIN: Normal. Dry. No rashes. PSYCH: Normal affect. Cooperative. Course Vital Signs Vital signs: Vital Signs Temperature 36.6 C 09/17/19 13:55 Pulse 85 09/17/19 13:55 Respiratory Rate 18 09/17/19 13:55 Blood Pressure 130/83 09/17/19 13:55 Pulse Oximetry 99 09/17/19 13:55 Temperature 36.6 C 09/17/19 13:55 Temperature Source Skin 09/17/19 13:55 Pulse 85 09/17/19 13:55 Respiratory Rate 18 09/17/19 13:55 Respiratory Effort Non-Labored 09/17/19 14:17 Blood Pressure 130/83 09/17/19 13:55 Pulse Oximetry 99 09/17/19 13:55 Oxygen Delivery Method Room Air 09/17/19 13:55 Oxygen Flow Rate 0 09/17/19 13:55 Pain Level 8 09/17/19 14:52 Lab/Test Results Lab/Test Results: Laboratory Tests Range/Units 09/17/19 14:11 Urine Color (Yellow) Yellow Urine Clarity (Clear) Cloudy Urine pH (5-8) 5.5 Ur Specific [place] (1.005-1.025) >= 1.030 H Urine Protein (Negative) mg/dL Trace H Urine Ketones (Negative) mg/dL Negative Urine Blood (Negative) Large H Urine Nitrite (Negative) Negative Urine Bilirubin (Negative) Negative Urine Urobilinogen (Up TO 0.2) EU/dL 0.2 Ur Leukocyte Esterase (Negative) Negative Urine RBC (0-2) HPF >50 H Urine WBC (0-5) HPF 0-2 Ur Epithelial Cells (Negative) HPF Few Urine Crystals (Negative) HPF Negative Urine Bacteria (Negative) HPF Rare Urine Casts (Negative) LPF Negative Urine Mucus (Negative) Negative Urine Other (Negative) Negative Ur Culture Indicated? No Urine Glucose (Negative) mg/dL Negative POC- Test(urine) Negative
== END 2019-09-17 15:41 | disposition home or self-care (01) ==
PROVIDERS: Emergency Provider Physician Assistant
DX: N94.4 Primary dysmenorrhea (principal)
CPT/HCPCS: 81025; 96372; 99284; 81003; 81015; 99283; J1885

== ENCOUNTER 2020-07-27 14:35 | Emergency (ER) | payer MEDICAID, SELFPAY ==
[2020-07-27 14:40] VITALS: BP 137/76; PULSE 67; RESP 20; TEMP 36.7; O2SAT 100
--- NOTE | 2020-07-27 15:15 | ED.GENADUL_ITS ---
Discharge Plan Disposition Patient Disposition: HOME Condition: Stable Discharge Details Clinical Impression: Dysmenorrhea Primary Care Provider: None,None ED Provider: Boris Jones Home Meds and New Rx's Prescriptions: Continued epinephrine [EpiPen 2-Yasmani] 0.3 MG/0.3 ML auto-injector 0.3 mg IM ONCE Qty: 1 RF: 0 ibuprofen 600 MG tablet 600 mg PO TID Qty: 30 RF: 0 Discharge Instructions Instructions: Dysmenorrhea (ED) Additional Instructions: Work-up here in the ER did not reveal any obvious emergent process. You have responded very nicely to the IV medications given. Plenty of fluids to avoid dehydration. Mlgi-hax-dztonsa ibuprofen as directed for discomfort. Please watch for new or worsening symptoms and return to the ER for any concerns. I personally spoke with Dr. Goss, her office should be reaching out to you and day or so to set up outpatient evaluation for your ongoing symptoms. Referrals: Libby Goss MD [ [facility] STAFF PHYSICIAN] - Discharge Data Discharge Date/Time-TO BE ENTERED AT DEPARTURE: 07/27/20 17:49 Medical Decision Making <Isabel Colvin MD - Last Filed: 08/02/20 10:35> Iva Dickens is a 25-year-old woman who presented to emergency department with pelvic pain with onset of her menstrual cycle, pelvic pain with menses has been chronic on day one of her menstrual cycle but occasionally becomes severe as she reports was the case today. On exam patient is well and nontoxic-appearing. Mild suprapubic tenderness to palpation without abdominal tenderness palpation. Given chronicity of her symptoms and patient statement that all symptoms are typical for her including severity of pain (occurs 2-3 times per year), doubt acute emergent pathology. Concern for likely dysmenorrhea, possible anemia, possible endometriosis, other. Exam/history at this time is not consistent with ovarian torsion, PID, appendicitis, sepsis. Plan for urine test, screening labs, IV fluids, Toradol, Zofran. Will monitor and reassess. Patient reporting symptoms significantly improved after medications. Awaiting lab results, Stephan consult for outpatient follow-up. I did discuss with the patient performing pelvic exam in the emergency department today. Patient declined, stating that symptoms are very typical for her and she prefer to follow-up as an outpatient with gynecology. Patient is signed out to Boris Jones at time of shift change with lab, discussion with gynecology pending. Clinical impression: Pelvic pain Disposition: still a patient Medical Records Medical records reviewed: Yes I reviewed the patient's medical records. <LUNA Reyez - Last Filed: 07/27/20 17:32> This is a 25-year-old female who I assumed care of at shift change by Dr. Colvin. Please see her initial HPI and examination. At time of shift change we are awaiting CBC, CMP, reevaluation status post medication ministration, [employer]EL[employer] consult. WBC of 10.91 hemoglobin 11.5 hematocrit 36.3 platelet count 360. Electrolytes unremarkable. Creatinine 0.81 with a GFR greater than 60. Urinalysis shows large blood but no signs of infection. Labs do not reveal any signs of anemia. She remains hemodynamically stable. I evaluated the patient personally in room 9. She is resting comfortably lying supine in the hospital stretcher. She appears well, nontoxic. She states that she is currently pain-free, denies nausea or any dizziness. She states that she feels back to her baseline and feels well enough for discharge. In discussion, she states that she has had the symptoms for nearly 10 years. I personally spoke with Dr. Goss, SQL APPLICATION DEVELOPER, who took the patient's name and demographics that her office would reach out to the patient to set up outpatient follow-up. Patient is grateful and has no additional questions or concerns. She will be sure to drink plenty of fluids to avoid dehydration and take dern-ncc-[id number] anti-inflammatory medication for symptomatic control. She was encouraged to watch for new or worsening symptoms and return to the ER for any concerns. Medical Records Medical records reviewed: Yes I reviewed the patient's medical records. Lab Data Lab results reviewed: Yes I reviewed the patient's lab results. Lab results narrative: Laboratory Tests Range/Units 07/27/20 07/27/20 07/27/20 15:04 16:03 16:03 WBC (4.4-10.8) 10^3/uL 10.91 H RBC (3.93-5.22) 10^6/uL 4.11 Hgb (11.2-15.7) g/dL 11.5 Hct (36.0-46.0) % 36.3 MCV (80-95) fL 88.3 MCH (27.0-33.0) pg 28.0 MCHC (32.0-36.0) % 31.7 L RDW (11.7-14.6) % 13.8 Plt Count (130-400) 10^3/uL 360 MPV (8.0-11.0) fL 10.0 Immature Gran % 0.5 Neutrophils % 74.2 Lymphocytes % 19.2 Monocytes % 5.7 Eosinophils % 0.1 Basophils % 0.3 Nucleated RBC % % 0 Absolute Neutrophils (1.2-6.7) 10^3/uL 8.10 H Absolute Lymphocytes (1.2-3.4) 10^3/uL 2.09 Absolute Monocytes (0.1-0.8) 10^3/uL 0.62 Absolute Eosinophils (0.0-0.7) 10^3/uL 0.01 Absolute Basophils (0.0-0.2) 10^3/uL 0.03 Sodium (136-145) mmol/L 139 Potassium (3.5-5.1) mmol/L 3.7 Chloride (98-107) mmol/L 106 Carbon Dioxide (21.0-32.0) mmol/L 24.0 Anion Gap (3-11) mmol/L 9.0 BUN (7-18) mg/dL 8 Creatinine (0.55-1.02) mg/dL 0.81 Estimated GFR/1.73 m2 (mL/min/1.73m2) >= 60.00 Glucose (74-106) mg/dL 100 Calcium (8.5-10.1) mg/dL 9.8 Total Bilirubin (0.2-1.0) mg/dL 0.2 AST (15-37) U/L 14 L ALT (14-59) U/L 14 Alkaline Phosphatase (46-116) U/L 90 Total Protein (6.4-8.2) g/dL 8.3 H Albumin (3.4-5.0) g/dL 3.6 Urine Color (Yellow) Yellow Urine Clarity (Clear) Sl cloudy Urine pH (5-8) 5.5 Ur Specific [place] (1.005-1.025) >= 1.030 H Urine Protein (Negative) mg/dL Negative Urine Ketones (Negative) mg/dL Negative Urine Blood (Negative) Large H Urine Nitrite (Negative) Negative Urine Bilirubin (Negative) Negative Urine Urobilinogen (Up TO 0.2) EU/dL 0.2 Ur Leukocyte Esterase (Negative) Negative Urine RBC (0-2) HPF >50 H Urine WBC (0-5) HPF Negative Ur Epithelial Cells (Negative) HPF Few Urine Crystals (Negative) HPF Negative Urine Bacteria (Negative) HPF Few Urine Casts (Negative) LPF Negative Urine Mucus (Negative) Negative Urine Other (Negative) Negative Ur Culture Indicated? No Urine Glucose (Negative) mg/dL Negative HPI <Isabel Colvin MD - Last Filed: 08/02/20 10:35> General Mode of arrival: ambulatory . Date/Time Provider Initiated Documentation: 07/27/20 14:43 . Limitations to Documentation: no limitations . Information obtained by: patient, RN notes reviewed and old records reviewed . HPI Narrative: Iva Dickens is a 25-year-old woman without reported history of major medical problems presenting to the emergency department with pelvic pain, nausea, lightheadedness. Patient reports that her period started today. Patient states that she has pain of the same quality and location in addition to nausea and lightheadedness whenever she has her period, symptoms are typically worse on the first day. Patient reports that this is exactly typical of her usual day 1 menstrual period symptoms, however pain is more severe than it usually is. Patient reports that she has had the same severity of pain intermi ttently with past periods and was seen here 10/02 for same. She denies any new or atypical symptoms. She denies other pain, fever, vomiting, diarrhea, dysuria, vaginal discharge, numbness, weakness, rash. Patient reports that her periods are always heavy, and her flow today is typical for her. Patient reports that she has not been sexually active in over 1 year. Related Data Home Medications Medication Instructions Recorded Confirmed epinephrine [EpiPen 2-Yasmani] 0.3 mg IM ONCE #1 pack 04/24/14 07/27/20 ibuprofen 600 mg PO TID #30 tablet 05/12/14 07/27/20 Previous Rx's Medication Instructions Recorded ibuprofen 600 mg PO TID #30 tablet 05/12/14 Allergies Allergy/AdvReac Type Severity Reaction Status Date / Time venom-honey bee Allergy Severe Anaphylaxsi Unverified 12/15/20 14:42 [bee venom (honey bee)] s General Stated Complaint: Abd Prob DUANE: 3 Review of Systems <Isabel Colvin MD - Last Filed: 08/02/20 10:35> Narrative: Constitutional: denies fevers Eyes: denies eye pain ENT: denies ear pain, dental pain, sore throat Cardiovascular: denies chest pain, edema Respiratory: denies SOB, cough GI: denies abdominal pain, vomiting, diarrhea : denies flank pain, dysuria, vaginal discharge, reports pelvic pain MSK: denies back pain, neck pain, arthralgias, myalgias Skin: denies rash Neuro: denies headaches, numbness, weakness PFSH <Isabel Colvin MD - Last Filed: 08/02/20 10:35> Medical History (Updated 07/27/20 @ 17:12 by LUNA Reyez) Headache no visual changes, no N/V Family History Mother Migraine Personal history of malignant neoplasm breast Asthma Brother Asthma Other Diabetes MGM Essential hypertension MGM Heart disease MGM Stroke MGM Social History Smoking/Tobacco Use Status: Current every day Smoking risk assessment performed?: Yes Alcohol Intake: current Alcohol Intake frequency: holidays/special occasions only Drug use: Occasionally Substance use type: marijuana Do you feel safe at home: Yes Do you feel safe in your relationship?: Yes Female Reproductive History Menstrual control method: none Exam <Isabel Colvin MD - Last Filed: 08/02/20 10:35> Narrative Exam Narrative: Constitutional: well and [id number], pleasant, conversing normally HENT: head atraumatic/normocephalic/normal inspection, mucous membranes moist Eyes: conjunctiva normal, sclera normal, pupils 3mm b/l Neck: no stridor, normal ROM, trachea midline Chest: normal inspection Resp: normal work of breathing, speaking in full sentences Cardio: normal rate, normal rhythm GI: abdomen soft, non-tender, non-distended, mild suprapubic tenderness to palpation Back: normal inspection, no rash Skin: warm, dry, normal color, no rash Neuro: alert, not altered, grossly non-focal, normal tone Ext: no edema Psych: normal mood, normal affect, normal behavior Course <Isabel Colvin MD - Last Filed: 08/02/20 10:35> Vital Signs Vital signs: Vital Signs Temperature 36.7 C 07/27/20 14:40 Pulse 67 07/27/20 14:40 Respiratory Rate 20 07/27/20 14:40 Blood Pressure 137/76 07/27/20 14:40 Pulse Oximetry 100 07/27/20 14:40 Temperature 36.7 C 07/27/20 14:40 Temperature Source Temporal Artery Scan 07/27/20 14:40 Pulse 67 07/27/20 14:40 Respiratory Rate 20 07/27/20 14:40 Respiratory Effort Non-Labored 07/27/20 14:43 Blood Pressure 137/76 07/27/20 14:40 Blood Pressure Position Sitting 07/27/20 14:40 Pulse Oximetry 100 07/27/20 14:40 Oxygen Delivery Method Room Air 07/27/20 14:40 Oxygen Flow Rate 0 07/27/20 14:40 Pain Level 7 07/27/20 14:40 Lab/Test Results Lab/Test Results: POC- Test(urine) Negative Sign Out <Isabel Colvin MD - Last Filed: 08/02/20 10:35> Sign Out Data: Sign Out Comment: Patient signed out to Boris statement of time of shift change with labs, employment educational coord consult pending Last updated by Isabel Colvin MD at 07/27/20 16:22
[2020-07-27 15:16] LABS: Bilirubin Negative (Negative); Blood Large (Negative); Clarity Sl Cloudy (Clear); Glucose Negative (Negative); Ketones Negative (Negative); Leukocyte Esterase Negative (Negative); Nitrite Negative (Negative); Specific Gravity >= 1.030 (1.005-1.025); Urobilinogen 0.2 EU/dL (Up TO 0.2); pH 5.5 (5-8)
[2020-07-27] MEDS: Ketorolac 15 MG/ML VIAL IVP (15:37)
[2020-07-27] MEDS: Ondansetron 4 MG/2 ML VIAL IVP (15:38)
[2020-07-27] MEDS: Normal Saline Flush 10 ML SYR IVP (15:38)
[2020-07-27] MEDS: Normal Saline 1,000 ML 1000 ML IV (15:38)
[2020-07-27 15:49] LABS: Bacteria Few HPF (Negative); C & S Indicated? No; Casts Negative LPF (Negative); Crystals Negative HPF (Negative); Epithelial Cells Few HPF (Negative); Mucus Negative (Negative); Other Cells Negative (Negative); RBC >50 HPF (0-2); WBC Negative HPF (0-5)
[2020-07-27 16:29] LABS: Abs Immature Grans 0.05 10^3/uL (0.0-0.06); Absolute Basophil Count 0.03 10^3/uL (0.0-0.2); Absolute Eosinophil Count 0.01 10^3/uL (0.0-0.7); Absolute Lymphocyte Count 2.09 10^3/uL (1.2-3.4); Absolute Monocyte Count 0.62 10^3/uL (0.1-0.8); Basophils % 0.3; Eosinophils % 0.1; HCT 36.3 % (36.0-46.0); HGB 11.5 g/dL (11.2-15.7); Immature Grans % 0.5; Lymphocytes % 19.2; MCHC 31.7 % (32.0-36.0); MCV 88.3 fL (80-95); Monocytes % 5.7; Neutrophils % 74.2; Nucleated RBC 0 %; Platelet Count 360 10^3/uL (130-400); RBC 4.11 10^6/uL (3.93-5.22); RDW 13.8 % (11.7-14.6); RDW-SD 44.3 fL; WBC 10.91 10^3/uL (4.4-10.8)
[2020-07-27 16:38] LABS: ALT 14 U/L (14-59); AST 14 U/L (15-37); Albumin 3.6 g/dL (3.4-5.0); Alkaline Phosphatase 90 U/L (46-116); BUN 8 mg/dL (7-18); Bilirubin, Total 0.2 mg/dL (0.2-1.0); CREATININE 0.81 mg/dL (0.55-1.02); Calcium 9.8 mg/dL (8.5-10.1); Chloride 106 mmol/L (98-107); Glucose 100 mg/dL (74-106); Potassium 3.7 mmol/L (3.5-5.1); Sodium 139 mmol/L (136-145); Total Protein 8.3 g/dL (6.4-8.2)
[2020-07-27 17:35] VITALS: BP 133/70; PULSE 75; RESP 18; TEMP 36.3; O2SAT 99
[2020-07-27 17:50] VITALS: BP 133/70; PULSE 75; RESP 18; TEMP 36.3; O2SAT 99
== END 2020-07-27 17:49 | disposition home or self-care (01) ==
PROVIDERS: Student in an Organized Health Care Education/Training Program; Emergency Provider Physician Assistant
DX: N94.4 Primary dysmenorrhea (principal)
CPT/HCPCS: 36415; 80053; 96361; 96374; 96375; 99284; 81003; 81015; 85025; 99283; J1885; J2405